=== PATIENT | male | born 1940 | race American Indian/Alaskan Native ===

== ENCOUNTER 2016-08-26 12:28 | Outpatient (CLI) | payer MEDICARE ==
[2016-08-26 14:48] LABS: Blood Urea Nitrogen 9 mg/dL (9-20)
--- NOTE | 2016-08-26 15:21 | Magnetic Resonance Report ---
MRI BRAIN WITH/WITHOUT CONTRAST: History: Syncope and collapse. Technique: Multiple T1 and T2 weighted images were obtained in multiple planes. Axial diffusion and gradient imaging was performed. Post contrast T1 images in two planes were obtained following IV gadolinium. Findings: Moderate volume loss and nonspecific chronic white matter changes are identified. These findings are likely appropriate for the patient's age. There are 2 focal chronic infarcts in the peripherally right cerebellar hemisphere measuring up to 1 cm. No large chronic infarct. No diffusion restriction, hemorrhage, mass effect or extra-axial fluid collection. Ventricular size is normal and symmetric. Cavum septum pellucida and cavum septum vergae are noted. The basal cisterns are clear. The paranasal sinuses and mastoid air cells are well aerated. Normal flow voids are identified in the appropriate vessels at the [place]. No abnormal enhancement is identified following IV gadolinium. Impression: Volume loss and chronic white matter changes which are appropriate for this persons age. 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 No acute intracranial process or abnormal enhancement.
== END 2016-08-26 12:29 | disposition home or self-care (01) ==
LOC: MRI 12:28
PROVIDERS: ATTEND Psychiatry & Neurology Neurology
DX: I63.9 Cerebral infarction, unspecified (principal)
CPT/HCPCS: 36415; 70553; 82565; 84520; A9577

== ENCOUNTER 2019-01-28 13:21 | Emergency (ER) | payer MEDICARE ==
--- NOTE | 2019-01-28 14:03 | Emergency Department Report ---
ED Syncope HPI - General Chief Complaint: Syncope Stated Complaint: POSS STEMI Time Seen by Provider: 01/28/19 13:36 Source: patient, old records Exam Limitations: no limitations - History of Present Illness Initial Comments: 78-year-old male with a past medical history of hydrocephalus, SENIOR RD ENGINEER shunt, GERD, hypertension, PVD, and elevated cholesterol visits to the hospital with a near syncopal episode. Patient states he was outside in the hot weather clearing Archive out of his driveway for approximately 20-30 minutes. He began to feel lightheaded and therefore came inside and sat on a chair. He denies syncope, fall, or head injury. He states he only had a banana and some water for breakfast this morning. He denies headache, blurred vision, abdominal pain, chest pain, shortness of breath, arrhythmias, nausea, vomiting, diarrhea, melena or hematochezia. Upon EMS arrival he was asymptomatic. EMS interpreted EKG is possible ST elevation PR and therefore patient was provided nitroglycerin and aspirin prior to arrival. Patient denies his neurosurgeon is affiliated with [facility]. He is in the process of finding a new primary care doctor. - Related Data Allergies/Adverse Reactions: Allergies No Known Allergies Allergy (Verified 05/24/15 12:13) Home Medications: Ambulatory Orders Cilostazol [Pletal] 100 mg PO BID 08/19/14 Omeprazole [PriLOSEC] 20 mg PO QDAY 08/19/14 Simvastatin [Zocor TAB] 40 mg PO QDAY 08/19/14 Carvedilol [Coreg] 6.25 mg PO BID #60 tablet 08/20/14 Cilostazol [Pletal] 100 mg PO BID tablet 09/14/17 ED Review of Systems ROS: Stated complaint: POSS STEMI Other details as noted in HPI Comment: All other systems reviewed and negative ED Past Medical Hx - Past Medical History Previous Medical History?: Yes Hx Hypertension: Yes Hx Heart Attack/AMI: No Hx Congestive Heart Failure: No Hx Deep Vein Thrombosis: No Hx GERD: Yes Hx Seizures: No Hx Dementia: No Additional medical history: PVD, high cholesterol - Surgical History Past Surgical History?: Yes Hx Coronary Stent: No Hx Pacemaker: No Hx Internal Defibrillator: No Additional Surgical History: hernia repain in 1960 - Social History Smoking Status: Never Smoker Substance Use Type: None - Medications Home Medications: Home Medications Medication Instructions Recorded Confirmed Last Taken Type Cilostazol [Pletal] 100 mg PO BID 08/19/14 09/12/17 04/22/16 History Omeprazole [PriLOSEC] 20 mg PO QDAY 08/19/14 09/12/17 04/22/16 History Simvastatin [Zocor TAB] 40 mg PO QDAY 08/19/14 09/12/17 04/22/16 History Carvedilol [Coreg] 6.25 mg PO BID #60 tablet 08/20/14 09/12/17 04/22/16 Rx Cilostazol [Pletal] 100 mg PO BID tablet 09/14/17 Unknown Rx ED Physical Exam - General Limitations: No Limitations - Other Other exam information: General: No acute distress Head: Atraumatic, SENIOR RD ENGINEER shunt palpated a right occipital area Eyes: Normal appearance, pupils equal reactive to light, extraocular movements intact ENT: Normal oropharynx Neck: Normal appearance, no C-spine tenderness, no meningismus Chest: Clear to auscultation bilaterally, no wheezes, rales, or crackles Cardiovascular: Regular rate and rhythm Abdomen: Soft, nondistended, nontender, no rebound or guarding, normal bowel sounds Back: Normal inspection, nontender Extremity: Normal inspection, no deformity, full range of motion Neuro: Alert and oriented 3, speech clear, no gross motor or sensory deficit, [id number] function intact Skin: No rash, warmth, or erythema ED Course Vital Signs 01/28/19 01/28/19 01/28/19 13:30 13:34 13:43 Temperature 97.9 F Pulse Rate 63 60 Pulse Rate [ Lying] Pulse Rate [ Sitting] Pulse Rate [ Standing] Respiratory 12 14 14 Rate Blood Pressure 126/70 126/70 Blood Pressure 126/70 [Left] Blood Pressure [Lying] Blood Pressure [Sitting] Blood Pressure [Standing] O2 Sat by Pulse 92 97 Oximetry 01/28/19 01/28/19 01/28/19 14:00 14:30 15:00 Temperature Pulse Rate 65 65 Pulse Rate [ Lying] Pulse Rate [ Sitting] Pulse Rate [ Standing] Respiratory 11 L 20 Rate Blood Pressure 124/71 124/71 132/58 Blood Pressure [Left] Blood Pressure [Lying] Blood Pressure [Sitting] Blood Pressure [Standing] O2 Sat by Pulse 95 Oximetry 01/28/19 01/28/19 01/28/19 15:30 15:40 16:00 Temperature Pulse Rate Pulse Rate [ 64 Lying] Pulse Rate [ 61 Sitting] Pulse Rate [ 72 Standing] Respiratory 13 13 Rate Blood Pressure 130/69 143/66 Blood Pressure [Left] Blood Pressure 125/65 [Lying] Blood Pressure 115/63 [Sitting] Blood Pressure 130/69 [Standing] O2 Sat by Pulse 85 Oximetry 01/28/19 16:30 Temperature Pulse Rate 77 Pulse Rate [ Lying] Pulse Rate [ Sitting] Pulse Rate [ Standing] Respiratory 10 L Rate Blood Pressure 135/67 Blood Pressure [Left] Blood Pressure [Lying] Blood Pressure [Sitting] Blood Pressure [Standing] O2 Sat by Pulse Oximetry ED Medical Decision Making - Lab Data Result diagrams: 01/28/19 13:45 01/28/19 13:45 Lab Results 01/28/19 01/28/19 01/28/19 Range/Units 13:45 13:45 13:45 WBC 5.9 (4.5-11.0) K/mm3 RBC 4.19 (3.65-5.03) M/mm3 Hgb 12.7 (11.8-15.2) gm/dl Hct 39.1 (35.5-45.6) % MCV 93 (84-94) fl MCH 30 (28-32) pg MCHC 33 (32-34) % RDW 14.0 (13.2-15.2) % Plt Count 200 (140-440) K/mm3 Lymph % (Auto) 29.1 (13.4-35.0) % [place] % (Auto) 8.8 H (0.0-7.3) % Eos % (Auto) 0.9 (0.0-4.3) % Baso % (Auto) 0.7 (0.0-1.8) % Lymph # 1.7 (1.2-5.4) K/mm3 [place] # 0.5 (0.0-0.8) K/mm3 Eos # 0.1 (0.0-0.4) K/mm3 Baso # 0.0 (0.0-0.1) K/mm3 Seg Neutrophils % 60.5 (40.0-70.0) % Seg Neutrophils # 3.6 (1.8-7.7) K/mm3 PT 14.1 (12.2-14.9) Sec. INR 1.12 (0.87-1.13) APTT 24.8 (24.2-36.6) Sec. Sodium 138 (137-145) mmol/L Potassium 4.5 (3.6-5.0) mmol/L Chloride 104.0 (98-107) mmol/L Carbon Dioxide 21 L (22-30) mmol/L Anion Gap 18 mmol/L BUN 19 (9-20) mg/dL Creatinine 1.2 (0.8-1.5) mg/dL Estimated GFR > 60 ml/min BUN/Creatinine Ratio 16 % Glucose 120 H (75-100) mg/dL Calcium 9.3 (8.4-10.2) mg/dL Total Bilirubin 0.80 (0.1-1.2) mg/dL AST 14 (5-40) units/L ALT 12 (7-56) units/L Alkaline Phosphatase 37 (35-129) units/L Troponin T (0.00-0.029) ng/mL Total Protein 6.8 (6.3-8.2) g/dL Albumin 3.7 L (3.9-5) g/dL Albumin/Globulin Ratio 1.2 % Urine Color (Yellow) Urine Turbidity (Clear) Urine pH (5.0-7.0) Ur Specific [place] (1.003-1.030) Urine Protein (Negative) mg/dL Urine Glucose (UA) (Negative) mg/dL Urine Ketones (Negative) mg/dL Urine Blood (Negative) Urine Nitrite (Negative) Urine Bilirubin (Negative) Urine Urobilinogen (<2.0) mg/dL Ur Leukocyte Esterase (Negative) Urine WBC (Auto) (0.0-6.0) /HPF Urine RBC (Auto) (0.0-6.0) /HPF Urine Bacteria (Auto) (Negative) /HPF Urine Mucus /HPF 01/28/19 01/28/19 Range/Units 13:45 15:49 WBC (4.5-11.0) K/mm3 RBC (3.65-5.03) M/mm3 Hgb (11.8-15.2) gm/dl Hct (35.5-45.6) % MCV (84-94) fl MCH (28-32) pg MCHC (32-34) % RDW (13.2-15.2) % Plt Count (140-440) K/mm3 Lymph % (Auto) (13.4-35.0) % [place] % (Auto) (0.0-7.3) % Eos % (Auto) (0.0-4.3) % Baso % (Auto) (0.0-1.8) % Lymph # (1.2-5.4) K/mm3 [place] # (0.0-0.8) K/mm3 Eos # (0.0-0.4) K/mm3 Baso # (0.0-0.1) K/mm3 Seg Neutrophils % (40.0-70.0) % Seg Neutrophils # (1.8-7.7) K/mm3 PT (12.2-14.9) Sec. INR (0.87-1.13) APTT (24.2-36.6) Sec. Sodium (137-145) mmol/L Potassium (3.6-5.0) mmol/L Chloride (98-107) mmol/L Carbon Dioxide (22-30) mmol/L Anion Gap mmol/L BUN (9-20) mg/dL Creatinine (0.8-1.5) mg/dL Estimated GFR ml/min BUN/Creatinine Ratio % Glucose (75-100) mg/dL Calcium (8.4-10.2) mg/dL Total Bilirubin (0.1-1.2) mg/dL AST (5-40) units/L ALT (7-56) units/L Alkaline Phosphatase (35-129) units/L Troponin T < 0.010 (0.00-0.029) ng/mL Total Protein (6.3-8.2) g/dL Albumin (3.9-5) g/dL Albumin/Globulin Ratio % Urine Color Yellow (Yellow) Urine Turbidity Clear (Clear) Urine pH 6.0 (5.0-7.0) Ur Specific [place] 1.019 (1.003-1.030) Urine Protein <15 mg/dl (Negative) mg/dL Urine Glucose (UA) Neg (Negative) mg/dL Urine Ketones Neg (Negative) mg/dL Urine Blood Neg (Negative) Urine Nitrite Neg (Negative) Urine Bilirubin Neg (Negative) Urine Urobilinogen < 2.0 (<2.0) mg/dL Ur Leukocyte Esterase Neg (Negative) Urine WBC (Auto) 1.0 (0.0-6.0) /HPF Urine RBC (Auto) 2.0 (0.0-6.0) /HPF Urine Bacteria (Auto) 1+ (Negative) /HPF Urine Mucus Few /HPF - EKG Data -: EKG Interpreted by Nm EKG shows normal: sinus rhythm, axis (qrs 10), QRS complexes (qrsd 88), ST-T waves (no stemi/t inv) Rate: normal (61) - EKG Data When compared to previous EKG there are: no significant change, previous EKG unavailable 01/28/19 18:40 repeat ekg shows no acute changes - Radiology Data Radiology results: report reviewed CHEST 1 VIEW INDICATION: syncope. COMPARISON: None FINDINGS: Ventriculoperitoneal shunt catheter in place SUPPORT DEVICES: None. HEART / MEDIASTINUM: No significant abnormality. LUNGS / PLEURA: No significant pulmonary or pleural abnormality. No pneumothorax. ADDITIONAL FINDINGS: IMPRESSION: 1. No acute findings. CT HEAD WITHOUT CONTRAST INDICATION / CLINICAL INFORMATION: Near syncopal episode. Status post ventriculoperitoneal shunt placement. TECHNIQUE: All CT scans at this location are performed using CT dose reduction for ALARA by means of automated exposure control. COMPARISON: Head CT 09/12/2017 and 11/05/2015. MRI brain 09/13/2017 FINDINGS: HEMORRHAGE: No evidence of intracranial hemorrhage or extra-axial fluid collection. EXTRA-AXIAL SPACES: Cortical sulci and sylvian fissures are enlarged reflecting a degree of parenchymal volume loss which is within normal limits for the patient's age. Basilar cisterns have an unremarkable appearance. VENTRICULAR SYSTEM: In the interval since the preceding study patient is undergone right parietal ventriculoperitoneal shunt catheter placement. Catheter tip is near the midline. Lateral ventricles are unchanged in size in comparison to previous shunt catheter placement study. Persistence of the cava septum pellucidum and cavum vergae is incidentally noted. The third and lateral ventricles are mildly enlarged reflecting resonance of age related parenchymal volume loss. Ventricular size is stable. CEREBRAL PARENCHYMA: Periventricular and deep white matter lucency is observed. This is probably secondary to microvascular ischemic change. There is no indication of recent infarction. No areas of encephalomalacia are identified. MIDLINE SHIFT OR HERNIATION: There is no mass effect. CEREBELLUM / BRAINSTEM: Brainstem and cerebellum have an unremarkable appearance. INTRACRANIAL VESSELS:Calcified atherosclerotic plaque is present along the course of the cavernous segments of both internal carotid arteries. Similar findings are seen at the distal vertebral arteries. ORBITS: visualized portions of the orbits have an unremarkable appearance. SOFT TISSUES of HEAD: No significant abnormality. 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 These are stable findings. Evaluation of bone windows reveals no additional abnormalities. PARANASAL SINUSES / MASTOID AIR CELLS: Paranasal sinuses are free from inflammatory mucosal disease. Mastoid air cells are normally pneumatized. IMPRESSION: 1. Interval placement of right parietal ventriculoperitoneal shunt catheter since 09/12/2017. Ventricular size is unchanged. 2. Age-related central greater than cortical parenchymal volume loss. 3. No acute intracranial abnormality. 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 Patient's been asymptomatic since arrival. EMS initially thought the patient's EKG represents an ST elevation PR and therefore he received aspirin and nitroglycerin. Patient did not have any chest pain. His EKG today is similar to his previous EKG. Patient to negative troponin enzymes and EKG is unchanged 2 in the ED. Patient has a nonfocal neuro exam and unremarkable CT. Patient's provided food. Labs are unremarkable. Patient offered admission for observation however, patient states he feels good and wants to go home. I believe that patient symptoms are secondary heat exposure and exertion. - Differential Diagnosis heat exhaustion, dehydration, arrhythmia, PR Critical Care Time: No Critical care attestation.: If time is entered above; I have spent that time in minutes in the direct care of this critically ill patient, excluding procedure time. ED Disposition Clinical Impression: Heat exposure, Near syncope Disposition: DC-01 TO HOME OR SELFCARE Is pt being admited?: No Does the pt Need Aspirin: No Condition: Stable Instructions: Lightheadedness (ED), Heat Exhaustion (ED) Additional Instructions: You have declined admission today. Follow-up with your doctor or with a doctor/clinic provided. Return is symptoms worsen as indicated by the discharge instructions. Referrals: TOPHER GODINEZ MD [Primary Care Provider] - 2-3 Days Time of Disposition: 18:45
[2019-01-28 14:14] LABS: Basophils % (Auto) 0.7 % (0.0-1.8); Eosinophils # (Auto) 0.1 K/mm3 (0.0-0.4); Eosinophils % (Auto) 0.9 % (0.0-4.3); Hematocrit 39.1 % (35.5-45.6); Hemoglobin 12.7 gm/dl (11.8-15.2); Lymphocytes # (Auto) 1.7 K/mm3 (1.2-5.4); Lymphocytes % (Auto) 29.1 % (13.4-35.0); Mean Corpuscular HGB Conc 33 % (32-34); Mean Corpuscular Volume 93 fl (84-94); Monocytes # (Auto) 0.5 K/mm3 (0.0-0.8); Monocytes % (Auto) 8.8 % (0.0-7.3); Platelet Count 200 K/mm3 (140-440); Red Blood Count 4.19 M/mm3 (3.65-5.03)
[2019-01-28 14:46] LABS: Alanine Aminotransferase 12 units/L (7-56); Albumin 3.7 g/dL (3.9-5); BUN/Creatinine Ratio 16; Blood Urea Nitrogen 19 mg/dL (9-20); Calcium 9.3 mg/dL (8.4-10.2); Hemolysis Index 10
[2019-01-28 15:05] LABS: INR 1.12 (0.87-1.13); Partial Thromboplastin Time 24.8 Sec. (24.2-36.6)
--- NOTE | 2019-01-28 15:49 | XRay Report ---
CHEST 1 VIEW INDICATION: syncope. COMPARISON: None FINDINGS: Ventriculoperitoneal shunt catheter in place SUPPORT DEVICES: None. HEART / MEDIASTINUM: No significant abnormality. LUNGS / PLEURA: No significant pulmonary or pleural abnormality. No pneumothorax. ADDITIONAL FINDINGS: IMPRESSION: 1. No acute findings. Signer Name: Saul Taylor MD Signed: 01/28/2019 3:45 PM Workstation Name: [email or web address]
[2019-01-28 16:41] LABS: Bacteria,Urine 1+ /HPF (Negative); Bilirubin,Urine NEG (Negative); Blood,Urine NEG (Negative); Color,Urine Yellow (Yellow); Mucus,Urine FEW /HPF; Protein,Urine <15 mg/dL mg/dL (Negative); Urobilinogen,Urine < 2.0 mg/dL (<2.0)
--- NOTE | 2019-01-28 17:15 | Cat Scan Report ---
CT HEAD WITHOUT CONTRAST INDICATION / CLINICAL INFORMATION: Near syncopal episode. Status post ventriculoperitoneal shunt placement. TECHNIQUE: All CT scans at this location are performed using CT dose reduction for ALARA by means of automated e xposure control. COMPARISON: Head CT 09/12/2017 and 11/05/2015. MRI brain 09/13/2017 FINDINGS: HEMORRHAGE: No evidence of intracranial hemorrhage or extra-axial fluid collection. EXTRA-AXIAL SPACES: Cortical sulci and sylvian fissures are enlarged reflecting a degree of parenchym al volume loss which is within normal limits for the patient's age. Basilar cisterns have an unremark able appearance. VENTRICULAR SYSTEM: In the interval since the preceding study patient is undergone right parietal teresita triculoperitoneal shunt catheter placement. Catheter tip is near the midline. Lateral ventricles are unchanged in size in comparison to previous shunt catheter placement study. Persistence of the cava s eptum pellucidum and cavum vergae is incidentally noted. The third and lateral ventricles are mildly enlarged reflecting resonance of age related parenchymal volume loss. Ventricular size is stable. CEREBRAL PARENCHYMA: Periventricular and deep white matter lucency is observed. This is probably se[place] ndary to microvascular ischemic change. There is no indication of recent infarction. No areas of ence phalomalacia are identified. MIDLINE SHIFT OR HERNIATION: There is no mass effect. CEREBELLUM / BRAINSTEM: Brainstem and cerebellum have an unremarkable appearance. INTRACRANIAL VESSELS:Calcified atherosclerotic plaque is present along the course of the cavernous se gments of both internal carotid arteries. Similar findings are seen at the distal vertebral arteries. ORBITS: visualized portions of the orbits have an unremarkable appearance. SOFT TISSUES of HEAD: No significant abnormality. 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 These are stable findings. Evaluation of bone windows reveals no additional abnormalities. PARANASAL SINUSES / MASTOID AIR CELLS: Paranasal sinuses are free from inflammatory mucosal disease. Mastoid air cells are normally pneumatized. IMPRESSION: 1. Interval placement of right parietal ventriculoperitoneal shunt catheter since 09/12/2017. Ventricul ar size is unchanged. 2. Age-related central greater than cortical parenchymal volume loss. 3. No acute intracranial abnormality. Signer Name: Austin Brantley MD Signed: 01/28/2019 5:10 PM Workstation Name: [email or web address]
[2019-01-28 19:26] VITALS: BP 135/80
== END 2019-01-28 20:00 | disposition home or self-care (01) ==
LOC: ED 13:21
DX: T67.5XXA Heat exhaustion, unspecified, initial encounter (principal); I10 Essential (primary) hypertension; K21.9 Gastro-esophageal reflux disease without esophagitis; E78.00 Pure hypercholesterolemia, unspecified; Z98.890 Other specified postprocedural states; Z79.899 Other long term (current) drug therapy; X58.XXXA Exposure to other specified factors, initial encounter; Y93.89 Activity, other specified; Y92.89 Other specified places as the place of occurrence of the external cause; Y99.8 Other external cause status
CPT/HCPCS: 36415; 70450; 71045; 80053; 81001; 84484; 85025; 85610; 85730; 93005; 93010